=== PATIENT | male | born 1955 | race Caucasian/White ===

== ENCOUNTER 2019-01-22 19:04 | Inpatient (IN) | payer OTHER, MEDICAID ==
[~2019-01-22] VITALS: Ht 175.3 cm; Wt 81.6 kg
[2019-01-22 19:09] VITALS: Ht 175.3 cm; Wt 81.6 kg
[2019-01-22 19:37] LABS: BASOPHIL % 0.4 % (0-2); PLATELET COUNT 244 x10^3mcL (130-400); RED CELL DISTRIBUTION WIDTH 14.8 % (11.5-14.5)
[2019-01-22 19:48] LABS: CALCIUM 8.8 mg/dL (8.5-10.1); CARBON DIOXIDE 31.1 mmol/L (21-32); CHLORIDE SERUM 104 mmol/L (98-107); CREATININE SERUM 0.7 mg/dL (0.7-1.3); GFR1 > 60 mL/min; GLUCOSE SERUM 170 mg/dL (74-106); POTASSIUM SERUM 3.5 mmol/L (3.5-5.1); SODIUM SERUM 140 mmol/L (136-145)
[2019-01-22 19:54] LABS: ALBUMIN 3.4 g/dL (3.4-5.0); ALKALINE PHOSPHATASE 78 U/L (46-116); ALT/SGPT 20 U/L (16-63); AST/SGOT 15 U/L (15-37); BILIRUBIN TOTAL 0.3 mg/dL (0.20-1.00); TOTAL PROTEIN, SERUM 7.1 g/dL (6.4-8.2)
[2019-01-22 19:56] LABS: microscopic required? YES; urine erythrocyte NEGATIVE (NEGATIVE)
[2019-01-22 20:08] LABS: AMPHETAMINE QUAL UR NONE DETECTED (See below)
[2019-01-23] MEDS ORDERED: FLO4 (00:14)
[2019-01-23] MEDS ORDERED: MIRALAX17 GM/Dose PO (00:15)
[2019-01-23] MEDS ORDERED: VITAMIN B121000 MCG (00:16)
[2019-01-23] MEDS ORDERED: MULTIVITAMIN1 SGL (00:17)
[2019-01-23] MEDS ORDERED: ZESTRIL20 MG (00:19)
[2019-01-23] MEDS ORDERED: JANUVIA100 M1 (00:19)
[2019-01-23] MEDS ORDERED: METFORMIN HCL1000 MG (00:20)
[2019-01-23] MEDS ORDERED: LISINOPRIL10 MG (00:21)
[2019-01-23] MEDS ORDERED: ZYPREXA10 M1 (00:21)
[2019-01-23] MEDS ORDERED: ZOLOFT50 MG (00:22)
[2019-01-23] MEDS ORDERED: ZYPREXA2.5 M1 (00:22)
[2019-01-23] MEDS ORDERED: CLONIDINE HCL0.1 MG (00:23)
[2019-01-23] MEDS ORDERED: HUMULIN R100 U/1 M1 (00:25)
[2019-01-23 01:19] LABS: MAGNESIUM 1.6 mg/dL (1.8-2.4)
[2019-01-23 01:25] LABS: CHOLESTEROL/HDL RATIO 1.9
[2019-01-23 02:56] VITALS: BP 159/77
[2019-01-23 05:45] VITALS: BP 146/74
[2019-01-23 06:14] LABS: BASOPHIL % 0.1 % (0-2); PLATELET COUNT 261 x10^3mcL (130-400)
[2019-01-23 06:49] LABS: CALCIUM 8.5 mg/dL (8.5-10.1); CARBON DIOXIDE 29.3 mmol/L (21-32); CHLORIDE SERUM 104 mmol/L (98-107); CREATININE SERUM 0.5 mg/dL (0.7-1.3); GFR1 > 60 mL/min; GLUCOSE SERUM 113 mg/dL (74-106); POTASSIUM SERUM 3.4 mmol/L (3.5-5.1); SODIUM SERUM 141 mmol/L (136-145)
[2019-01-23 07:42] VITALS: BP 141/80; BP 143/78
[2019-01-23 12:27] VITALS: BP 136/69
[2019-01-23 16:07] VITALS: BP 120/61
[2019-01-23 20:43] VITALS: BP 112/69
[2019-01-24 05:45] VITALS: BP 141/70
[2019-01-24 06:40] LABS: BASOPHIL % 0.5 % (0-2); PLATELET COUNT 260 x10^3mcL (130-400)
[2019-01-24 06:46] LABS: RED CELL DISTRIBUTION WIDTH 14.8 % (11.5-14.5)
[2019-01-24 07:04] LABS: CALCIUM 8.9 mg/dL (8.5-10.1); CARBON DIOXIDE 29.5 mmol/L (21-32); CHLORIDE SERUM 106 mmol/L (98-107); CREATININE SERUM 0.7 mg/dL (0.7-1.3); GFR1 > 60 mL/min; GLUCOSE SERUM 85 mg/dL (74-106); MAGNESIUM 1.9 mg/dL (1.8-2.4); PHOSPHOROUS 3.4 mg/dL (2.5-4.9); POTASSIUM SERUM 3.8 mmol/L (3.5-5.1); SODIUM SERUM 140 mmol/L (136-145)
[2019-01-24 08:50] VITALS: BP 155/84
[2019-01-24 13:05] VITALS: BP 164/96
[2019-01-24 17:09] VITALS: BP 151/79
[2019-01-24 20:51] VITALS: BP 149/71
[2019-01-25 06:31] VITALS: BP 173/92
[2019-01-25 07:17] LABS: BASOPHIL % 0.5 % (0-2); PLATELET COUNT 263 x10^3mcL (130-400)
[2019-01-25 07:45] LABS: CALCIUM 9.1 mg/dL (8.5-10.1); CHLORIDE SERUM 101 mmol/L (98-107); CREATININE SERUM 0.7 mg/dL (0.7-1.3); GFR1 > 60 mL/min; GLUCOSE SERUM 88 mg/dL (74-106); MAGNESIUM 1.8 mg/dL (1.8-2.4); POTASSIUM SERUM 3.6 mmol/L (3.5-5.1); SODIUM SERUM 138 mmol/L (136-145)
[2019-01-25 07:53] LABS: RED CELL DISTRIBUTION WIDTH 14.6 % (11.5-14.5)
[2019-01-25 09:02] VITALS: BP 123/79
[2019-01-25 17:28] VITALS: BP 137/79
[2019-01-25 19:31] VITALS: BP 132/64
[2019-01-26 05:48] VITALS: BP 159/74
[2019-01-26 10:30] VITALS: BP 155/99
[2019-01-26 21:13] VITALS: BP 152/80
[2019-01-27 06:42] VITALS: BP 141/66
[2019-01-27 17:03] VITALS: BP 162/66
[2019-01-27 20:25] VITALS: BP 163/84
[2019-01-28 04:55] VITALS: BP 121/65
[2019-01-28 08:50] VITALS: BP 143/75
[2019-01-28 12:20] VITALS: BP 146/89
[2019-01-28 19:49] VITALS: BP 146/89
[2019-01-28 21:02] VITALS: BP 136/75
== END 2019-01-29 01:07 | DRG 637 ==
LOC: ED 19:04 → DU 01-23 00:24 → MU 01-23 00:24 → DU 01-23 02:03 → MU 01-24 14:00
PROVIDERS: Emergency Medicine; ADMIT General Practice
DX: E11.649 Type 2 diabetes mellitus with hypoglycemia without coma (principal); G93.41 Metabolic encephalopathy; N39.0 Urinary tract infection, site not specified; F20.0 Paranoid schizophrenia; D68.69 Other thrombophilia; N17.0 Acute kidney failure with tubular necrosis; F32.9 Major depressive disorder, single episode, unspecified; E83.42 Hypomagnesemia; I10 Essential (primary) hypertension; N40.0 Benign prostatic hyperplasia without lower urinary tract symptoms; Z68.26 Body mass index [BMI] 26.0-26.9, adult; Z79.4 Long term (current) use of insulin; Z79.84 Long term (current) use of oral hypoglycemic drugs
CPT/HCPCS: 82962; G0480; J1956; J3475; J3490; J7030; Q0092